=== PATIENT | female | born 1960 | race Caucasian/White ===

== ENCOUNTER 2018-04-09 09:58 | Day surgery (SDC) | payer BC ==
[2018-04-06 12:46] VITALS: BMI 31.3
[2018-04-09] MEDS ORDERED: MIDAZOLAM HCL 2 MG/2 ML SINGLE DOSE VIAL ONE (13:16)
[2018-04-09] MEDS ORDERED: ROCURONIUM BROMIDE 50 MG/5 ML VIAL ONE (13:30)
[2018-04-09] MEDS ORDERED: PROPOFOL 20 ML ONE ×4 (13:30→16:44)
[2018-04-09] MEDS ORDERED: LIDOCAINE HCL/PF 2% SDV 5ML VIAL ONE (13:51)
[2018-04-09] MEDS ORDERED: ceFAZolin SODIUM 1 GM VIAL ONE (13:51)
[2018-04-09] MEDS ORDERED: KETOROLAC TROMETHAMINE 30 MG/1 ML VIAL ONE (13:51)
[2018-04-09] MEDS ORDERED: DEXAMETHASONE SOD PHOSPHATE 4 MG/1 ML VIAL ONE (13:51)
[2018-04-09] MEDS ORDERED: ONDANSETRON 4 MG/2 ML VIAL ONE (13:51)
[2018-04-09] MEDS ORDERED: fentaNYL CITRATE 250 MCG/5 ML VIAL ONE (13:55)
[2018-04-09] MEDS ORDERED: ePHEDrine SULFATE 50 MG/1 ML AMPULE ONE (16:14)
[2018-04-09] MEDS ORDERED: GLYCOPYRROLATE 0.2 MG/1 ML VIAL ONE (16:48)
[2018-04-09] MEDS ORDERED: NEOSTIGMINE METHYLSULFATE 0.5 MG/ML - 10 ML MDV ONE (16:48)
--- NOTE | 2018-04-09 17:33 | SURG ---
Surgery [employer] Commander Note [employer] Commander: Adonis Ayala PA-C Date of Service: 04/09/18 Diagnosis: Symptomatic macromastia Procedure: Bilateral breast reduction I was present for the entirety of the operative procedure. For further detail, please refer to operative report. Visit type - Case Type Case Type: Scheduled - New patient This patient is new to me today: Yes Date on this admission: 04/09/18
[2018-04-09] MEDS ORDERED: PROMETHAZINE HCL 25 MG/1 ML VIAL IVPUSH PRN (17:35)
[2018-04-09] MEDS ORDERED: ONDANSETRON 4 MG/2 ML VIAL IVPUSH PRN (17:35)
[2018-04-09] MEDS ORDERED: oxyCODONE HCL 5 MG TABLET PO PRN ×4 (17:35→17:45)
--- NOTE | 2018-04-09 17:35 | OP ---
Operative Note - Note: Operative Date: 04/09/18 Pre-Operative Diagnosis: Symptomatic macromastia Operation: Bilateral breast reduction Post-Operative Diagnosis: Same as Pre-op Surgeon: Juancarlos Valdivia Gaming Host: Adonis Ayala Anesthesiologist/BACTERIOLOGIST FISHERY: Edward Tenorio Anesthesia: General Specimens Removed: Bilateral breast tissue and skin Estimated Blood Loss (mls): 100 Fluid Volume Replaced (mls): 1,200 Operative Report Dictated: Yes
[2018-04-09] MEDS ORDERED: ONDANSETRON 4 MG/2 ML VIAL IVPB PRN (17:45)
[2018-04-09] MEDS ORDERED: LACTATED RINGERS SOLUTION 1,000 ML IV SCH (17:45)
--- NOTE | 2018-04-09 17:48 | OP ---
Operative Note - Note: Operative Date: 04/09/18 Pre-Operative Diagnosis: bilateral macromastia Operation: bilateral breast reduction Findings: above Post-Operative Diagnosis: Same as Pre-op Surgeon: Juancarlos Valdivia Anesthesia: General Operative Report Dictated: Yes
[2018-04-09] MEDS ORDERED: oxyCODONE HCL 5 MG TABLET ONE (18:08)
[2018-04-09 18:54] VITALS: TEMP 97.5
[2018-04-09 19:32] VITALS: BP 134/72; PULSE 59
--- NOTE | 2018-04-12 00:23 | OP ---
DATE OF OPERATION: 04/09/2018 PROCEDURE: Bilateral reduction mammoplasty. PREOPERATIVE DIAGNOSIS: Bilateral symptomatic macromastia. POSTOPERATIVE DIAGNOSIS: Bilateral symptomatic macromastia. ATTENDING SURGEON: Juancarlos Donohue MD DIALYSIS TECH: RADHA Gill ANESTHESIA: General endotracheal anesthesia. DESCRIPTION OF PROCEDURE: Patient is marked in the holding area, awake and aware of all incisions, and resulting scars. Nipples were sighted at 25 cm from the sternal notch bilaterally. Modified antonio-type pattern is used. Patient is given 1 g of Ancef preoperatively. TEDs and SCD hose are applied in the holding area. Brought to the operating room and placed in the supine position. All pressure points were carefully padded. Patient was prepped and draped in the standard surgical fashion. A timeout was called. Patient, procedure, site, and side were verified. Attention was first directed to the bilateral breasts where a 45-mm cookie cutter was used to trace the nipple areola. Then, 10 cm width pedicles were developed and the pedicles were then de-epithelialized from the breast with a tourniquet bilaterally, with the exception of the nipple areolar complex. The tourniquets were released. Attention was then directed towards the left breast where skin flaps were elevated superiorly, medially, and laterally. The pedicle was then developed leaving vascular attachments to the pectoralis major muscle deep and inferiorly. Nipple is easily demonstrable and viable with good reactivity and bleeding from the dermal edges. The resected weight on the left breast is 1337 g. This breast is nearly twice as large as the right breast. Skin is tailor tacked. Attention was then directed to the right breast where a mirror image procedure was performed. The resected weight on the right side was 777 g. Hemostasis was meticulously achieved bilaterally. Wounds were copiously irrigated. A size 10 flat NOAH drain was brought out through the lateral extent of the incisions. Closure was performed as follows: Half-buried mattress 2-0 nylon to the inferior T-point is used. The skin was then closed with a series of interrupted buried deep dermal 3-0 Monocryl suture. Everywhere the vertical and horizontal limbs are closed with a running subcuticular 3-0 Monocryl suture, the nipple areolar was then set with a running 4-0 Monocryl suture. The wounds were dressed with Steri-Strips. Patient had been brought to a seated upright position where the symmetry of the breasts was assured of both shape and size. Multiple members of the operating team agreed on the excellence of the symmetry. The dressings were applied with ABD gauze and a surgical bra. She was woken from anesthesia and tolerated the procedure well. Transferred to the recovery room in without complication. JUANCARLOS DONOHUE M.D. GERONIMO/[id number]
--- NOTE | 2018-04-12 15:21 | PATH ---
Surgical Pathology Report Patient Name: ABIGAIL MONTANO [facility]. Rec. #: [id number] /Age/Gender: 1960 (Age: 57) / F Account: [id number] Location: [facility] AMBULATORY Taken: 04/09/2018 Received: 04/09/2018 Reported: 04/12/2018 Physicians: Juancarlos Valdivia Specimen(s) Received A: LEFT BREAST TISSUE WITH SKIN B: RIGHT BREAST TISSUE WITH SKIN Clinical History Bilateral macromastia Final Diagnosis A. BREAST, TISSUE AND SKIN, LEFT, BREAST REDUCTION: BENIGN BREAST TISSUE. SKIN WITHOUT SIGNIFICANT PATHOLOGIC FINDINGS. B. BREAST, TISSUE AND SKIN, RIGHT, BREAST REDUCTION: BENIGN BREAST TISSUE. SKIN WITHOUT SIGNIFICANT PATHOLOGIC FINDINGS. Electronically Signed Rosalina Gan M.D. Gross Description A. Received in formalin, labeled "left breast tissue and skin" is one portion of adipose tissue surmounted by unremarkable adkins skin and measuring 39 x 15 x 6.5 cm. Also received are multiple portions of adipose tissue and skin having an aggregate are 13.5 x 12 x 2 cm. Sectioning reveals predominantly unremarkable adipose tissue with rare streaks of white fibrous tissue. [employer] sections are submitted in two cassettes. B. Received in formalin, labeled "right breast tissue and skin" is one portion of adipose tissue surmounted by unremarkable adkins skin and measuring 36 x 6 x 6 cm. Also received is an additional portion of adipose tissue measuring 10 x 6.5 x 1.5 cm. Sectioning reveals unremarkable adipose tissue with rare streaks of white fibrous tissue. [employer] Rental Agent sections are submitted in two cassettes. AE/04/10/2018 ebram/04/10/2018
== END 2018-04-09 18:55 | disposition home or self-care (01) ==
LOC: FASU 09:58
PROVIDERS: ATTEND Plastic Surgery
PROC: 0H0V0ZZ Alteration of Bilateral Breast, Open Approach (ICD-10-PCS; principal; 2018-04-09 14:11)
DX: N62 Hypertrophy of breast (principal)
CPT/HCPCS: 88305-TC; 94760